=== PATIENT | male | born 1990 | race African-American/Black ===

== ENCOUNTER 2019-01-12 22:38 | Emergency (ER) | payer SELFPAY ==
[~2019-01-12] VITALS: Ht 188 cm; Wt 101.0 kg
--- NOTE | 2019-01-12 22:41 | NUR ---
CT TECHNICIAN: NIL WHEN CALLED FOR TRIAGE
[2019-01-12 22:44] VITALS: BP 110/73
[2019-01-12] MEDS ORDERED: HYDROcodone/APAP 5/325 TABLET PO STA (23:16)
[2019-01-12] MEDS ORDERED: DEXAMETHASONE 4 MG TABLET PO STA (23:31)
[2019-01-12] MEDS ORDERED: IBUPROFEN 800 MG TABLET PO STA (23:31)
[2019-01-12] MEDS ORDERED: DEXAMETHASONE 4 MG TABLET ONE (23:35)
[2019-01-12] MEDS ORDERED: IBUPROFEN 800 MG TABLET ONE (23:35)
[2019-01-13] MEDS ORDERED: DEXAMETHASONE 4 MG TABLET PO SCH (07:30)
== END 2019-01-12 23:54 | disposition home or self-care (01) ==
LOC: ED 23:05
DX: J02.0 Streptococcal pharyngitis (principal); F17.210 Nicotine dependence, cigarettes, uncomplicated
CPT/HCPCS: 99283